=== PATIENT | female | born 1950 | race Caucasian/White ===

== ENCOUNTER → 2024-07-30 13:11 | Outpatient (REF) | payer MEDICARE, OTHER, SELFPAY | LOC: HWRAD 13:11 | PROVIDERS: ATTENDING PHYSICIAN Nurse Practitioner; FAMILY PHYSICIAN Family Medicine | DX: R41.3 Other amnesia (principal) | CPT/HCPCS: 70450 ==

== ENCOUNTER 2024-08-24 16:20 | Observation (INO) | payer MEDICARE, OTHER, SELFPAY ==
[2024-08-24] VITALS (7 sets, daily range): BP systolic 111–152; BP diastolic 72–97; BMI 22.5; BMI 24.7
--- NOTE | 2024-08-24 13:53 | ED.GENMED ---
History of Present Illness
General
Chief Complaint: Chest Pain
Source: patient
Exam Limitations: none
Time Seen by Provider: 08/24/24 13:39
History of Present Illness
History of Present Illness:
See MDM
Past History
Past History
ED Past Medical History: Hypercholesterolemia and Hypothyroidism
ED Past Surgical History: Gynecological
Social History
Tobacco: Non-smoker
Alcohol: None
Phy Exam
Physical Exam
Physical Exam:
See MDM
Scores
Heart Score for Chest Pain Patients
STEMI patient?: No
History: Highly Suspicious
ECG: Nonspecific Repolarization
Age: >/= 65 years
Risk Factors: 1 or 2 Risk Factors
Troponin: </= Normal Limit
Heart Score for Chest Pain Patients: 6
Heart Score Risk: 20.3% MACE over next 6 weeks
Course
Orders/Labs/Results
Orders:
Orders
08/24/24 13:03
EKG [Electrocardiogram (*1)] Urgent
Reason for Study: Chest Pain
EKG- Treatment ONCE
08/24/24 13:50
Aspirin Chewable [Low Strength Aspirin] 324 mg PO NOW STA
08/24/24 13:52
Nitroglycerin Sublingual [Nitrostat (Sublingual)] 0.4 mg SL [id number] PRN
CR Chest - 2 Views Urgent
Comment:
Reason For Exam: chest pain
08/24/24 13:57
Complete Blood Count/With Diff Urgent
Comprehensive Metabolic Panel Urgent
PTT Urgent
Prothrombin Time Urgent
Troponin I Urgent
08/24/24 14:26
Electrocardiogram (*1) Urgent
Reason for Study: Chest Pain
EKG- Treatment ONCE
08/24/24 14:48
Ketorolac [Toradol] 30 mg IV NOW STA
08/24/24 14:58
Consult Cardiology [CARDIOLOGY CONSULT] Routine
Consulting Provider: Sotero Haney
Was physician already notified: Yes
08/24/24 16:30
Troponin I Urgent
Abnormal Lab Results
08/24/24
13:57
RBC 3.95 L 10^6/uL
(4.20-5.40)
MCH 31.6 H pg
(27.0-31.0)
Absolute Monos (auto) 0.9 H 10^3/uL
(0.1-0.6)
Monocytes % 10.1 H %
(1.7-9.3)
Total Protein 6.1 L g/dl
(6.3-8.2)
08/24/24 13:57
08/24/24 13:57
Vital Signs
Initial and Last Documented VS:
Initial Vital Signs
Temp Pulse Resp BP Pulse Ox
97.7 F 77 17 146/97 99
08/24/24 13:00 08/24/24 13:00 08/24/24 13:00 08/24/24 13:00 08/24/24 13:00
Last Documented Vital Signs
Temp Pulse Resp BP Pulse Ox
97.7 F 66 17 150/86 99
08/24/24 13:00 08/24/24 13:34 08/24/24 13:34 08/24/24 13:58 08/24/24 13:00
MDM/Problems Addressed
Differential Diagnosis Includes:
HPI and MDM Narrative:
74-year-old female presenting for evaluation of chest discomfort. Patient went for her routine walk and noticed chest pressure and tingling down her left arm. This has been going on for the past hour or so. Majority of the symptoms improved when
she rested but she still has mild chest pressure. She denies prior cardiac issues. Screening EKG negative. Will give nitroglycerin and aspirin with concern for ACS. Will have cardiology evaluate
Physical exam
General: Well appearing and non-toxic
HEENT: protecting airway
Neck: appears supple
CV: No evidence of cyanosis. Regular rate and rhythm
Resp: No accessory muscle use. Lungs clear
Abd: Non-distended
Extremities: No deformities. No leg edema
Neuro: alert
Psych: Normal affect
Skin: Intact
Problems Addressed including Acute and Chronic Conditions affecting care:
1. Exertional dyspnea and chest pain
Acuity: acute
Prognosis: stable
Details: Symptoms are improving with rest. Will give aspirin and nitroglycerin and discussed case with cardiology
Updates
Case discussed with cardiology who suggested discharge and to be placed on cardiac callback tracker if 2 troponins are normal. Patient is comfortable with this plan. Her initial troponin is negative. Symptoms
Given the ongoing symptoms, will admit for monitoring and cardiology will evaluate in the morning assuming repeat troponin remains normal
Differential Diagnosis (but not limited to): Acute coronary syndrome, dissection, unstable angina
Testing considered: D-dimer
Drug therapy (if applicable): OTC meds, please see d/c instruction regarding Rx drugs
Amount and/or Complexity of Data Reviewed
Clinical info obtained from: Patient
External data reviewed: N/A
Labs I independently reviewed (but not limited to): Initial troponin negative
Radiology: N/A
Pulse Ox: not hypoxic
EKG independently reviewed: Normal sinus rhythm, normal axis, no STEMI
Loom Winder Tender: Sinus rhythm
Critical Care: N/A
Risk of Complication:
Social Determinants of health: Good social support
Discussed with other providers: Human Resources Temp, hospitalist
Escalation of Care includes Admit/Obs: Given exertional symptoms, will admit for cardiology evaluation
Occasional wrong word or 'sound a like' substitutions may have occurred due to the inherent limitations of voice recognition software. Read the chart carefully and recognize, using context, where substitutions have occurred.
*Critical Care Note
Total Time (30-74mins, 75-104mins- exclusive of procedures): Not Applicable
ED Attending Note
-
Portions of this chart may have been created with voice recognition software.� Occasional wrong word or��sound alike� substitutions may have occurred due to the inherent limitations of voice recognition software.
Discharge Plan
Departure
Patient Disposition: Admit
Date of Disposition: 08/24/24
Time of Disposition: 15:16
Admit to: Med/Surg
Presentation/result/management discussed w/ accepting MD/DO: Hospitalist
Discharge Problem:
Exertional chest pain
Referrals:
Albert Noland MD [Family Provider] -
Interventions
Interventions:
*Risk Screen - Suicide Last Done: 08/24/24 13:02
*General Assessment Last Done: 08/24/24 13:02
*Neglect/Abuse Screening Last Done: 08/24/24 13:02
*ED- Fall Risk Assessment Last Done: 08/24/24 13:32
*ED COVID-19 Vaccine History Last Done: 08/24/24 13:02
ED- Cardiac Assessment Last Done: 08/24/24 13:56
Discharge Date and Time
Print Language: INDONESIAN
[2024-08-24] MEDS: LOW STRENGTH ASPIRIN 324 MG PO (13:58)
[2024-08-24] MEDS: NITROSTAT (SUBLINGUAL) 0.4 MG SL (13:58)
[2024-08-24 14:17] LABS: Hematocrit 37.1 % (37.0-47.0); Hemoglobin 12.5 g/dL (12.0-16.0); Mean Corp Hgb Conc. 33.7 g/dL (33.0-37.0); Mean Corpuscular Hgb 31.6 pg (27.0-31.0); Mean Corpuscular Volume 93.9 fL (81.0-99.0); Mean Platelet Volume 8.5 fL (7.4-10.4); Platelet Count 204 10^3/uL (130-400); Red Blood Cell Count 3.95 10^6/uL (4.20-5.40); Red Cell Dist. Width 12.4 % (11.5-14.5); White Blood Cell Count 8.6 10^3/uL (4.8-10.8)
[2024-08-24 14:29] LABS: % Basophils 0.5 % (0-2); % Eosinophils 2.4 % (0-6); % Immature Granulocytes 0.2 % (0-0.5); % Lymphocytes 25.7 % (20.5-51.1); % Monocytes 10.1 % (1.7-9.3); % Neutrophils 61.1 % (42.2-75.2); APTT 28.7 Sec (23.4-35.0); Absolute Eosinophils 0.2 10^3/uL (0-0.7); Absolute Lymphocytes 2.2 10^3/uL (1.2-3.4); Absolute Monocytes 0.9 10^3/uL (0.1-0.6); Absolute Neutrophils 5.3 10^3/uL (1.4-6.5); INR 0.91; Nucleated Red Blood Cells % 0 %; PT 12.6 Sec (11.4-14.6)
[2024-08-24 14:31] LABS: ALT (SGPT) 14 U/L (0-35); AST (SGOT) 21 U/L (14-36); Albumin 3.7 g/dl (3.5-5.0); Alkaline Phosphatase 43 U/L (38-126); Blood Urea Nitrogen 17 mg/dl (7-17); Calcium 9.3 mg/dl (8.4-10.2); Carbon Dioxide 29 mmol/L (22-30); Chloride 106 mmol/L (98-107); Estimated Creatinine Clearance 51 ml/min; Glucose 89 mg/dl (70-99); Potassium 4.1 mmol/L (3.5-5.1); Sodium 140 mmol/L (135-145); Total Bilirubin 0.6 mg/dl (0.2-1.3); Total Protein 6.1 g/dl (6.3-8.2); eGFR > 60.00
[2024-08-24 14:43] LABS: Troponin I < 0.012 ng/ml
[2024-08-24] MEDS: TORADOL 30 MG IV (15:00)
--- NOTE | 2024-08-24 15:24 | HPS.HSE ---
Addendum entered and electronically signed by Sukh Kilgore MD 08/24/24 17:06:
When seen by me, pt denied active chest pain, but described earlier cp as substernal squeezing
Pt seen independently and agree with SCIENTIFIC PUBLICATIONS EDITOR note
Lungs coarse BS rt base
CV reg, no m, g, c
Abd soft, nontender, no pain at Montero's point
Ext no edema
EKG nl
Imp: Chest pain in pt with very strong family hx of CAD
Hypothyroid
P:EKG, Troponin, Cardio consult
agree that if pt is neg for trop, would proceed with nuc EST due to strong family hx of CAD
Original Note:
Family Physician
-
Family Physician: Albert Noland
Chief Complaint
-
Chest pressure through to scapula and left arm
History of Present Illness
74-year-old female complaining of chest pressure and tingling down her left arm after a routine walk. Reports she walks 3 miles a day but splits it up into 1 and half miles each she also walked 2 days ago 4.5 miles at [facility]. Today after
arriving home after her 11 AM walk she developed chest pressure through to her mid scapular area and down her left arm 6 out of 10 describes as heaviness this occurred 15 minutes after being home and has been persistent since being here despite
nitroglycerin. She does have increased pain with twisting upper torso in bed, leaning over however she has never had this chest pressure before. She denies diaphoresis or headache she does have strong family history with her father having MT
requiring stents in his 50s and CABG at 58 and her son age 41 requiring a recent LAD stent daughter also with atherosclerosis and 1 brother with MT in his 50s. She denies headache, sore throat, fever, chills, palpitations, cough, shortness of
breath, diaphoresis, abdominal pain, nausea, vomiting, diarrhea, recent illness.
In the ER she still complained of mild chest pressure she was given nitroglycerin and aspirin with concern for ACS. She has past medical history of HTN, hypothyroidism, HLD.
Medical History
Past Medical History
Past Medical History: Reports Other
Additional Past Medical History:
Hypothyroidism
HLD
HTN
Past Surgical History: Reports Other ( section, nose surgery)
Social History
Tobacco: Non-smoker
Alcohol: Daily (White wine 5 to 6 ounces daily)
Drug: None
Personal:
Living: With Family ( Gregg)
Employment: Retired (Teacher)
Family History
Family History: Early CAD (Father MT age 50s, CABG age 58, son LAD stent age 41, brother MT age early 50s) and Other (Mother history of MDS of pneumonia 80s, 1 daughter history of atherosclerosis in her 40s)
Allergies / Home Medications
Allergies reflects when Allergies were last updated in [employer].
Home Medications with original date entered in [employer]
Allergy/Medication List:
Allergies
Allergy/AdvReac Type Severity Reaction Status Date / Time
Penicillins Allergy Rash Verified 08/24/24 13:01
Sulfa (Sulfonamide Allergy Rash Verified 08/24/24 13:01
Antibiotics)
Home Medications
Lisinopril 0.5 tab PO DAILY 08/24/24
cyanocobalamin (vitamin B-12) 1,000 mcg tablet 1,000 mcg PO DAILY 08/24/24
levothyroxine 25 mcg tablet (Synthroid) 25 mcg PO DAILY 08/24/24
simvastatin 20 mg tablet (Zocor) 20 mg PO QPM 08/24/24
Review of Systems
-
History Source: Patient and Family ( Gregg at bedside)
A 12 point ROS was completed and negative except as noted: Yes
Constitutional: Denies Fever, Weight Loss, Fatigue or Chills
EENT: Denies Sore Throat or Runny Nose
Respiratory: Denies Cough or Trouble Breathing
Cardiac: Reports Chest Pain (Midsternal to scapula and left arm pressure in nature); Denies Diaphoresis, Palpitations or Syncope
Abdomen/GI: Denies Abdominal Pain, Nausea, Vomiting, Diarrhea, Constipated, Bloody Stools or Black Stools
: Denies Dysuria, Frequency, Flank Pain, Incontinence, Difficulty Voiding or Urgency
Musculoskeletal: Denies Joint Pain or Edema
Skin: Denies Itching or Rash
Neurological: Denies Dizzy, Headache or Weakness
Endocrine: Reports No Symptoms
Hematologic/Lymphatic: Reports No Symptoms
Psych: Reports Calm
Physical Exam
Vital Signs
Vital Signs
Temp Pulse Resp BP Pulse Ox
97.7 F 66 17 150/86 99
08/24/24 13:00 08/24/24 13:34 08/24/24 13:34 08/24/24 13:58 08/24/24 13:00
Physical Exam
General: Conversant and Pain (6 out of 10 midsternal chest pain); No Fever or Chills
HEENT: NormoCephalic, Anicteric, Moist mucous membranes, PERRLA, [place] Conjunctivae and No Ptosis
Respiratory: Clear; No Wheezes, Rales or Rhonchi
Cardiac: S1/S2 and Regular Rhythm; No Murmur, Rub, Gallop or Peripheral Edema
Breast: Deferred by me
GI: Soft, Non Tender, Non Distended, Normal Bowel Sounds and No Hepatosplenomegaly
Rectal: Deferred by Provider
Genito-urinary: Deferred by me
Musculoskeletal: No Clubbing, No Cyanosis and No Edema
Skin: Warm and Dry; No Rash
Neuro: AO x 3, No Motor Deficits, Nonfocal/grossly intact, Cranial Nerves Intact and No Sensory Deficits; No Slurred Speech, Facial Droop, Tremors or Sedated
Psych: Calm
Laboratory Results
-
08/24/24 13:57
08/24/24 13:57
Laboratory Results
PT 12.6 Sec (11.4-14.6) 08/24/24 13:57
INR 0.91 08/24/24 13:57
APTT 28.7 Sec (23.4-35.0) 08/24/24 13:57
Total Bilirubin 0.6 mg/dl (0.2-1.3) 08/24/24 13:57
AST 21 U/L (14-36) 08/24/24 13:57
ALT 14 U/L (0-35) 08/24/24 13:57
Alkaline Phosphatase 43 U/L (38-126) 08/24/24 13:57
Troponin I < 0.012 ng/ml 08/24/24 13:57
Data Reviewed
-
Diagnostic Radiology: Report Reviewed by me
Lab Data: Labs Reviewed by me
Impression/Plan
-
Impression/plan:
Observation telemetry
#Chest pain concern for ACS
Troponin <0.012, will trend next due at 1630
- Given aspirin 324 mg in ER, continue aspirin 81 mg daily
-Continue Zocor 20 mg every afternoon
- Given nitroglycerin 0.4 milligrams sublingual
- Spoke with Dr. Lowery [facility] cardiology-prefers waiting for second troponin at 430 if elevated would recommend heparin drip and nitro
-Check lipid profile, HgbA1c
-Check lipoprotein a
EKG: NSR 66 bpm, QTc 408 MS otherwise normal
Repeat EKG at 1426: NSR 61 bpm, QTc 418 MS otherwise normal
CXR:
1. Moderate to severe multilevel DDD throughout the mid thoracic
spine/lumbar spine
2. Normal heart size without evidence of acute pulmonary edema
3 minimal left pleural effusion or pleural thickening
#Moderate to severe multilevel DDD mid thoracic/lumbar spine per CXR
- Patient made aware of above findings
#HTN�benign
BP 134/75
Patient unsure of lisinopril dose
Will have IV hydralazine SBP> 165
#HLD
Check lipid profile
Continue Zocor 20 mg daily
#Daily alcohol use
- Drinks 1 glass white wine 5 to 6 ounces daily-no concern for withdrawal
#Hypothyroidism
Check TSH with free T4 reflex
DVT prophylaxis
Subcu heparin
Full code
--- NOTE | 2024-08-24 16:12 | CON.CAR ---
Consultation
Consultation Request
Date/Time Consultation Requested: 08/24/24
Date/Time Consultation Performed: 08/24/24
Requesting Provider: Ha
Performing Provider: Lyndon
Reason for Consultation: CP
Medical History
-
Chief Complaint: CP
History of Present Illness:
74-year-old woman presenting for evaluation of chest discomfort. Tells me she was in her usual state of health and went for her morning walk which is usually approximately 1.5 miles. Following the walk she developed chest tightness/pressure with
radiation down to the back as well as down her arm. Tells me she has never had an episode of chest discomfort like this previously. [place] that it lasted for approximately 30 minutes waxing waning including on her way to the emergency department.
Time my evaluation tells me that she is chest pain-free. ECG in the ER is nonischemic appearing. Initial troponin was undetectable. Patient was admitted to hospital medicine service for observation overnight and cardiology evaluation.
PMHx/PSHx:
HTN
HLD
Hypothyroidism
Past Medical History
Past Medical History: Other (as above)
Past Surgical History: Other (as above)
Social History
Tobacco: Former Smoker (Remote)
Living: With Family
Family History
Family History: Early CAD (Father had bypass in his 50s and son had a stent in his 40s)
Allergies / Home Medications
Allergy/AdvReac Type Severity Reaction Status Date / Time
Penicillins Allergy Rash Verified 08/24/24 13:01
Sulfa (Sulfonamide Allergy Rash Verified 08/24/24 13:01
Antibiotics)
�Medication �Instructions �Recorded �Confirmed �Type
Lisinopril 0.5 tab PO DAILY 08/24/24 08/24/24 History
cyanocobalamin (vitamin B-12) 1,000 mcg PO DAILY 08/24/24 08/24/24 History
1,000 mcg tablet
levothyroxine 25 mcg tablet 25 mcg PO DAILY 08/24/24 08/24/24 History
(Synthroid)
simvastatin 20 mg tablet (Zocor) 20 mg PO QPM 08/24/24 08/24/24 History
Review of Systems
-
History Source: Patient
All other systems: Negative unless noted
Physical Exam
Vital Signs
Temp Pulse Resp BP Pulse Ox
97.7 F 61 12 134/75 97
08/24/24 13:00 08/24/24 16:00 08/24/24 16:00 08/24/24 15:00 08/24/24 16:00
Lab Results
08/24/24 13:57
08/24/24 13:57
Troponin I < 0.012 ng/ml 08/24/24 13:57
Physical Exam
General: Well Developed
HEENT: Normocephalic
Respiratory: Clear
Cardiac: S1/S2 and Regular Rhythm
Breast: Deferred by me
GI: Soft
Musculoskeletal: No Edema
Skin: Warm and Dry
Neuro: Awake and Alert
Psych: Calm
Impression / Plan
-
Rn Supplemental: None
Assessment:
Chest pain
HTN
HLD
hypothyroid
FHx early CAD
Remote smoking history
Plan:
-Presenting with chest discomfort following a morning walk
-Chest pain-free at the time of my evaluation
-No ischemic changes on ECG
-Initial troponin undetectable, would repeat and trend to peak
-Aspirin/statin
-As needed SL nitroglycerin for recurrent chest pain
-If troponin is elevated would start heparin drip but observe for now
-If troponin remains undetectable plan for nuclear stress test in a.m.
-For completeness we will check echo as well
Discussed with patient and at bedside
Data Reviewed
-
EKG: Tracing Personally Visualized and interpreted
Radiology: Image Personally Visualized and interpreted
Labs: Labs Reviewed by me
Old Records: Reviewed
[2024-08-24 17:02] LABS: Troponin I < 0.012 ng/ml
--- NOTE | 2024-08-24 17:15 | PTCARENOTE ---
Pt arrived to rm 401-1 at this time from the ED. Pt AAOx3, denying any chest pain, no SOB. SR on telemetry. See shift assessment for further detail. Oriented pt to rm, reporting concerns, plan of care, call padilla etc. Pt verbalized understanding.
[2024-08-24] MEDS: LIPITOR 10 MG PO (18:50)
[2024-08-24] MEDS: HEPARIN 5000 UNITS SC (20:29)
[2024-08-25 03:30] VITALS: BP 105/62
[2024-08-25 05:22] VITALS: BP 156/91
[2024-08-25] MEDS: NITROSTAT (SUBLINGUAL) 0.4 MG SL (05:30)
[2024-08-25 06:39] LABS: Hematocrit 36.5 % (37.0-47.0); Hemoglobin 12.2 g/dL (12.0-16.0); Mean Corp Hgb Conc. 33.4 g/dL (33.0-37.0); Mean Corpuscular Hgb 31.5 pg (27.0-31.0); Mean Corpuscular Volume 94.3 fL (81.0-99.0); Mean Platelet Volume 8.9 fL (7.4-10.4); Platelet Count 208 10^3/uL (130-400); Red Blood Cell Count 3.87 10^6/uL (4.20-5.40); Red Cell Dist. Width 12.4 % (11.5-14.5); White Blood Cell Count 5.9 10^3/uL (4.8-10.8)
[2024-08-25 06:42] LABS: Troponin I < 0.012 ng/ml
--- NOTE | 2024-08-25 06:44 | PTCARENOTE ---
Pt called at 0520 to report chest pain that feels like pressure. EKG with no changes. Nitro given. Pt states that she has relief from chest pressure. Trop added, came back Neg (<0.012). Will monitor the pt
[2024-08-25 06:48] LABS: ALT (SGPT) 13 U/L (0-35); AST (SGOT) 20 U/L (14-36); Albumin 3.6 g/dl (3.5-5.0); Alkaline Phosphatase 48 U/L (38-126); Blood Urea Nitrogen 19 mg/dl (7-17); Carbon Dioxide 29 mmol/L (22-30); Chloride 106 mmol/L (98-107); Estimated Creatinine Clearance 60 ml/min; Glucose 98 mg/dl (70-99); HDL Cholesterol 56 mg/dl; LDL Cholesterol, Calculated 76 mg/dl; Potassium 3.9 mmol/L (3.5-5.1); Sodium 140 mmol/L (135-145); Total Bilirubin 0.7 mg/dl (0.2-1.3); Total Cholesterol 157 mg/dl (50-199); Triglyceride 126 mg/dl (10-149); Very Low Density Lipoprotein 25 mg/dl (0-30); eGFR > 60.00
[2024-08-25] MEDS: SYNTHROID 25 MCG PO (07:25)
[2024-08-25] MEDS: HEPARIN 5000 UNITS SC (07:26)
[2024-08-25] MEDS: VITAMIN B-12 1000 MCG PO (07:26)
[2024-08-25] MEDS: LOW STRENGTH ASPIRIN 81 MG PO (07:26)
[2024-08-25] MEDS: FLUSH (NSS) 1 FLUSH IV ×2 (07:26→09:43)
[2024-08-25 07:30] VITALS: BP 145/90
[2024-08-25 07:34] LABS: TSH Reflex To Free T4 3.44 uIU/ml (0.47-4.68)
--- NOTE | 2024-08-25 07:45 | PTCARENOTE ---
Pt off unit for echo and stress test.
[2024-08-25 08:39] LABS: % Basophils 0.5 % (0-2); % Eosinophils 3.4 % (0-6); % Immature Granulocytes 0.3 % (0-0.5); % Lymphocytes 33.5 % (20.5-51.1); % Neutrophils 53.3 % (42.2-75.2); Absolute Eosinophils 0.2 10^3/uL (0-0.7); Absolute Monocytes 0.5 10^3/uL (0.1-0.6); Absolute Neutrophils 3.2 10^3/uL (1.4-6.5); Nucleated Red Blood Cells % 0 %
[2024-08-25] MEDS: LEXISCAN 0.4 MG IV (09:43)
[2024-08-25] MEDS: AMINOPHYLLINE 75 MG IV (10:16)
[2024-08-25 10:55] LABS: Glycohemoglobin (HgbA1c) 5.5 % (4.0-5.6)
[2024-08-25 11:28] VITALS: BP 136/88
--- NOTE | 2024-08-25 11:49 | W.PN.CARDCBS ---
Addendum entered and electronically signed by Omar Payne MD 08/25/24 12:44:
I saw and examined the patient.
The PERSONAL INVESTMENT ADVISER or PA's note was reviewed and I agree with the note.
Comment: General: Well developed, well nourished in NAD.
Chest pain noncardiac. Echocardiogram and stress test were normal. Stable cardiology status for discharge with no follow-up needed. Discussed with primary service. Family updated as well as patient
Original Note:
Today's Communication / Plan
-
Echo and stress test results reviewed with patient and bedside
Stable for d/c to home
Impression / Plan
-
PCP: Dr. Albert Barnett
Milk Wagon Driver: None
Assessment:
Chest pain
HTN
HLD
hypothyroid
FHx early CAD
Remote smoking history
Lexiscan mibi 08/25/24: Negative Lexiscan sestamibi for ischemia, fixed apical defect suspicious with soft tissue attenuation, EF is 70%.
Echo 08/25/24: EF 64%, normal diastolic function, mild MR
Plan:
-Patient has not had recurrence of pain. Troponin serially undetectable
-Patient and updated bedside with echo and stress test results from 08/25/24. Explained results and recommended that patient should call cardiology office, PCP or return to ER if recurrent chest pain and could consider coronary CTA at that
time.
-LDL 76, cont usual dose of simvastatin 20 mg daily
-No need to continue aspirin as an outpatient
-Patient should resume her usual dose of lisinopril upon d/c. Dose unknown because patient does not know and no eCW chart.
-Stable for d/c from a cardiac standpoint, communicated with hospitalist attending and also RN.
Progress Note - Milk Wagon Driver
Subjective
Date of Service: August 25, 2024
Feels well, no chest pain during stress test
Objective
Labs:
08/25/24 05:49
08/25/24 05:49
Labs
Hgb 12.2 g/dL (12.0-16.0) 08/25/24 05:49
Hct 36.5 % (37.0-47.0) L 08/25/24 05:49
Plt Count 208 10^3/uL (130-400) 08/25/24 05:49
PT 12.6 Sec (11.4-14.6) 08/24/24 13:57
INR 0.91 08/24/24 13:57
APTT 28.7 Sec (23.4-35.0) 08/24/24 13:57
Sodium 140 mmol/L (135-145) 08/25/24 05:49
Potassium 3.9 mmol/L (3.5-5.1) 08/25/24 05:49
BUN 19 mg/dl (7-17) H 08/25/24 05:49
Creatinine 0.6 mg/dL (0.6-1.0) 08/25/24 05:49
Glucose 98 mg/dl (70-99) 08/25/24 05:49
Troponins
08/24/24 08/24/24 08/25/24
13:57 16:25 05:49
Troponin I < 0.012 < 0.012 < 0.012
Vital Signs and I&O:
Vital Signs
Temp Pulse Resp BP Pulse Ox
98.3 F 68 18 136/88 97
08/25/24 11:28 08/25/24 11:28 08/25/24 11:28 08/25/24 11:28 08/25/24 11:28
Vital Signs
Temp Pulse Resp BP Pulse Ox
98.3 F 68 18 136/88 97
08/25/24 11:28 08/25/24 11:28 08/25/24 11:28 08/25/24 11:28 08/25/24 11:28
Intake & Output
08/23/24 08/24/24 08/25/24 08/26/24
06:59 06:59 06:59 06:59
Intake Total 480 / 480
Balance 480 / 480
Physical Exam
Physical Exam
GEN: AAOx3
HEENT: mmm
LUNGS: RA. No audible wheeze
CV: SR on tele
EXT: No edema B/L
NEURO: Gross non-focal
SKIN: No rash
--- NOTE | 2024-08-25 12:37 | W.PN.HOSP.TC ---
Today's Communication/Plan
-
dc to home
Assessment / Plan
Assessment / Plan
#Chest pain concern for ACS
Troponin <0.012 x2
- Given aspirin 324 mg in ER, continue aspirin 81 mg daily
-Continue Zocor 20 mg every afternoon
- Given nitroglycerin 0.4 milligrams sublingual
contacted by Dr. Payne
EST and Echo reviewed. Pt cleared for DC
- lipoprotein a pending
EKG: NSR 66 bpm, QTc 408 MS otherwise normal
Repeat EKG at 1426: NSR 61 bpm, QTc 418 MS otherwise normal
CXR:
1. Moderate to severe multilevel DDD throughout the mid thoracic
spine/lumbar spine
2. Normal heart size without evidence of acute pulmonary edema
3 minimal left pleural effusion or pleural thickening
#Moderate to severe multilevel DDD mid thoracic/lumbar spine per CXR
- Patient made aware of above findings
#HTN�benign
BP 134/75
Patient unsure of lisinopril dose
Will have IV hydralazine SBP> 165
#HLD
Check lipid profile
Continue Zocor 20 mg daily
#possible mild senile dementia
in process of being evaluated by outpt neurologist
#Daily alcohol use
- Drinks 1 glass white wine 5 to 6 ounces daily-no concern for withdrawal
#Hypothyroidism
Check TSH with free T4 reflex
DVT prophylaxis
Subcu heparin
DC now
see dictated note
Full code
Anticipated Discharge: Today
Subjective/Interval History
-
Date of Service: August 25, 2024
No pain currently
Objective Data
-
Labs:
Laboratory Results
08/25/24
05:49
WBC 5.9
Hgb 12.2
Hct 36.5 L
Plt Count 208
Sodium 140
Potassium 3.9
Chloride 106
Carbon Dioxide 29
BUN 19 H
Creatinine 0.6
Glucose 98
Calcium 9.0
Total Bilirubin 0.7
AST 20
ALT 13
Alkaline Phosphatase 48
Vital Signs:
Vital Signs
Temp Pulse Resp BP Pulse Ox
98.3 F 68 18 136/88 97
08/25/24 11:28 08/25/24 11:28 08/25/24 11:28 08/25/24 11:28 08/25/24 11:28
I&O
08/24/24 08/25/24 08/26/24
06:59 06:59 06:59
Intake Total 480 / 480
Balance 480 / 480
Review of Systems
-
History Source: Patient and Family ( in room)
Constitutional: Denies Fever
EENT: Reports No Symptoms Reported
Respiratory: Reports No Symptoms; Denies Trouble Breathing
Cardiac: Reports No Symptoms; Denies Chest Pain
Abdomen/GI: Reports No Symptoms
Physical Exam
-
General: Well Developed, Well Nourished and No Apparent Distress
HEENT: Normocephalic, Atraumatic and Moist Mucous Membranes
Respiratory: Clear to Auscultation; Negative Wheezes, Rales or Rhonchi
Cardiac: Regular Rhythm and S1/S2
GI: Soft, Nontender and Nondistended
Musculoskeletal: No Clubbing, No Cyanosis and No Edema
--- NOTE | 2024-08-25 13:12 | W.DS.TRANS ---
DC Summary - Baton Twirler
-
Discharge Instructions:
Discharge Diagnosis/Procedures Chest Pain
Diet Regular
Activity No restrictions
Driving Restrictions driving as per neurologist
Bathing Restrictions None
Others Tests Gall Bladder Ultrasound
Instructions:
Stand-Alone Forms:
Changes to Home Medications: No
Discharge Medications:
DC Medications w/original date entered in [employer]
Lisinopril 0.5 tab PO DAILY Blood Pressure 08/24/24
cyanocobalamin (vitamin B-12) 1,000 mcg tablet 1,000 mcg PO DAILY Supplement 08/24/24
levothyroxine 25 mcg tablet (Synthroid) 25 mcg PO DAILY Thyroid 08/24/24
simvastatin 20 mg tablet (Zocor) 20 mg PO QPM High Cholesterol 08/24/24
Home Medication Changes
Pending Results: No
--- NOTE | 2024-08-25 13:13 | W.DS.TRANS ---
DC Summary - Loan Officer
-
Discharge Instructions:
Discharge Diagnosis/Procedures Chest Pain
Diet Regular
Activity No restrictions
Driving Restrictions driving as per neurologist
Bathing Restrictions None
Others Tests Gall Bladder Ultrasound
Instructions:
Stand-Alone Forms:
Changes to Home Medications: No
Discharge Medications:
DC Medications w/original date entered in [employer]
Lisinopril 0.5 tab PO DAILY Blood Pressure 08/24/24
cyanocobalamin (vitamin B-12) 1,000 mcg tablet 1,000 mcg PO DAILY Supplement 08/24/24
levothyroxine 25 mcg tablet (Synthroid) 25 mcg PO DAILY Thyroid 08/24/24
simvastatin 20 mg tablet (Zocor) 20 mg PO QPM High Cholesterol 08/24/24
Home Medication Changes
Pending Results: Yes
Additional Pending Results:
Lp(a)
[2024-08-25] MEDS: TYLENOL 650 MG PO (13:50)
[2024-08-25 14:38] VITALS: BP 117/82
[2024-08-25 15:03] VITALS: BP 117/82
--- NOTE | 2024-08-25 16:57 | CM ---
Alert awake oriented patient who lives with her Gregg in a 2 story home with 2 steps to enter and 14 steps to bed/bathroom. She is independent in driving and all activates of daily living.[place] letter given explained signed on chart.
No VN in past . No SNF hx
Pharmacy [facility]
PCP Dr Marina
PLAN Home with no needs
[2024-08-25 18:28] LABS: Hepatitis C Antibody Negative (Negative)
[2024-08-26 13:46] LABS: Lipoprotein a (Lp a) 9 mg/dL (<=29)
== END 2024-08-25 15:28 | disposition home or self-care (01) ==
LOC: 4 EAST ACU 16:20
PROVIDERS: Clinical Nurse Specialist Family Health; Registered Nurse; ADMITTING PHYSICIAN Internal Medicine; CONSULT PHYSICIAN Internal Medicine Cardiovascular Disease; EMERGENCY PHYSICIAN Student in an Organized Health Care Education/Training Program
DX: R07.89 Other chest pain (principal); E03.9 Hypothyroidism, unspecified; Z79.82 Long term (current) use of aspirin; I10 Essential (primary) hypertension; Z79.899 Other long term (current) drug therapy; Z87.891 Personal history of nicotine dependence
CPT/HCPCS: 71046; 78452; 80053; 80061; 83036; 83695; 84443; 84484; 85025; 85610; 85730; 86803; 93005; 93017; 93306; 96374; 99285; A9500; G0378; J2785

== ENCOUNTER → 2024-09-03 11:07 | Outpatient (REF) | payer MEDICARE, OTHER, SELFPAY | LOC: HWRAD 11:07 | PROVIDERS: ATTENDING PHYSICIAN Family Medicine | DX: R10.9 Unspecified abdominal pain (principal); R07.9 Chest pain, unspecified | CPT/HCPCS: 76700 ==

== ENCOUNTER → 2025-03-19 16:09 | Outpatient (REF) | payer MEDICARE, OTHER, SELFPAY | LOC: MRI 3T 16:09 | PROVIDERS: ATTENDING PHYSICIAN Nurse Practitioner; FAMILY PHYSICIAN Family Medicine | DX: G31.84 Mild cognitive impairment of uncertain or unknown etiology (principal) | CPT/HCPCS: 70551 ==